=== PATIENT | male | born 1955 | race Caucasian/White ===

== ENCOUNTER → 2019-07-17 | Outpatient (CLI) | payer OTHER ==
--- NOTE | 2019-07-17 08:51 | RAD ---
EXAM: Bilateral lower extremity arterial Doppler. HISTORY: Bilateral lower extremity claudication, smoking history. COMPARISON: None. FINDINGS: Grayscale and Doppler analysis of the lower extremity arterial systems was performed. On the right, there are postobstructive monophasic waveforms throughout. They become more blunted within the trifurcation vessels. The distal posterior tibial and dorsalis pedis arteries remain patent. On the left, there are triphasic waveforms within the common femoral and deep femoral arteries. They become monophasic by the distal superficial femoral artery. The dorsalis pedis and distal posterior tibial arteries are patent. IMPRESSION: 1. Significantly flow-limiting stenosis proximal to the right common femoral artery. There is additional stenosis within the trifurcation vessels. 2. Significantly flow-limiting stenosis in the region of the left proximal/mid superficial femoral artery. Electronically signed by: Boone Hayes MD (07/17/2019 8:49 AM) [facility]
--- NOTE | 2019-07-17 09:15 | RAD ---
CLINICAL HISTORY: CIRRHOSIS COMPARISON: None available. TECHNIQUE: Ultrasound of the upper abdomen was performed. FINDINGS: The liver measures 18.3 cm in length in the right mid clavicular line. Liver is mildly nodular in contour with apparent enlargement of the caudate lobe. Hepatic echotexture is heterogeneous.. There are no focal liver lesions. Flow seen within the portal veins. The gallbladder is normal in appearance without evidence for cholelithiasis. There is no wall thickening or pericholecystic fluid. There is no pain with direct transducer pressure over the gallbladder. The common bile duct measures 0.5 cm. The spleen is not well visualized. The pancreas is mostly obscured by overlying intestinal gas.. The right kidney measures 10.5 cm in bipolar length. The left kidney measures 11.5 cm in bipolar length. No focal renal lesion. Normal renal echotexture. No hydronephrosis. Atherosclerotic calcifications of the aorta. There is no free fluid in the upper abdomen. IMPRESSION: Morphologic changes of the liver which may be seen with hepatic cirrhosis. Electronically signed by: Moe Schaefer MD (07/17/2019 9:12 AM) [facility]
== END | disposition home or self-care (01) ==
LOC: US 07:23
PROVIDERS: ATTEND Family Medicine
DX: I70.203 Unspecified atherosclerosis of native arteries of extremities, bilateral legs (principal); K74.60 Unspecified cirrhosis of liver; I70.0 Atherosclerosis of aorta
CPT/HCPCS: 76700; 93925

== ENCOUNTER → 2019-07-31 | Outpatient (CLI) | payer OTHER ==
[~2019-07-31] MED LIST: CONTRAST GIVEN. MC PRN; IOHEXOL 350 MG/ML 100 ML VIAL. IV ONE
--- NOTE | 2019-08-01 11:31 | RAD ---
EXAM: CT ANGIOGRAPHY OF THE ABDOMEN, PELVIS AND LOWER EXTREMITIES WITH AND WITHOUT CONTRAST. HISTORY: Femoral artery stenosis. TECHNIQUE: Computed tomographic angiography of the abdomen, pelvis and lower extremities was performed before and after the intravenous administration of iodinated contrast. 3-D maximum intensity projections were also performed. COMPARISON: None. FINDINGS: Bone windows reveal mild to moderate chronic superior plate compression fractures at T11 and T12. There are no suspicious lesions. Images of the lung bases reveal pleural calcifications in the left base with associated pleural parenchymal scarring and air trapping. There is some left basilar volume loss. Hepatic surface nodularity indicates cirrhotic change. No focal lesions are identified. The spleen is not enlarged and contains a few calcified granulomas. The gallbladder, pancreas, adrenal glands and kidneys are unremarkable. There are no pathologically enlarged lymph nodes. The appendix is not inflamed. There is no small bowel obstruction. The bladder is decompressed but demonstrates at least moderate wall thickening. The prostate is only mildly enlarged for patient age. There is no abdominal aortic aneurysm. There is moderate to severe diffuse aortoiliac plaquing. Aortic atheromatous narrow the lumen to 7 mm in the infrarenal portion consistent with abdominal aortic stenosis. There is moderate stenosis at the origin of the celiac axis. A chronic short segment dissection flap may be present. There is a separate origin of the left gastric artery directly from the aorta. The superior mesenteric artery is patent at its origin. There is mild stenosis approximately 5 cm distal to its origin. The inferior mesenteric artery is patent. Calcified plaquing along the left renal artery does not result in significant stenosis. The right renal artery is patent. Both common iliac arteries are severely diseased. There is multifocal moderate stenosis bilaterally. There is subtotal occlusion of the right external iliac artery at its origin. A tiny flow lumen persists but may be retrograde. The left external iliac artery is patent. Both internal iliac arteries are severely diseased. The left posterior division is occluded. The right common femoral artery is subtotally occluded. The right superficial femoral artery perfusion appears to be mostly from collateralization through the deep femoral artery. The right superficial femoral artery is diffusely severely diseased with multifocal moderate stenoses. The right popliteal artery occludes in its midportion just proximal to the joint line. The left common iliac artery is severely diseased with only mild luminal narrowing. There is a moderate stenosis at the origin of the left superficial femoral artery. The left superficial femoral artery is diffusely severely diseased with calcified and uncalcified plaquing resulting in multifocal moderate stenosis throughout its proximal portion. It occludes distally. The left popliteal artery reconstitutes immediately thereafter and is diffusely severely diseased with multifocal mild to moderate stenoses. The right trifurcation vessels reconstitute from collaterals proximally. All 3 appear to be patent throughout their course. The dorsalis pedis and common plantar arteries appear patent, though there is likely some perfusion delay of the dorsalis pedis artery. On the left, there is a normal three-vessel trifurcation. The dorsalis pedis and common plantar arteries appear patent. IMPRESSION: 1. Multifocal infrarenal abdominal aortic stenosis with minimal luminal diameter 7 mm. 2. Multifocal bilateral moderate common iliac stenoses. 3. 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 The right superficial femoral artery reconstitutes from internal iliac and deep femoral collaterals and demonstrates multifocal moderate stenosis. The right popliteal artery occludes in its midportion. 4. The left common femoral and superficial femoral arteries are severely diseased with multifocal moderate stenoses. The left superficial femoral artery occludes distally. The popliteal artery reconstitutes and contains multiple mild to moderate stenoses. 5. The right trifurcation vessels reconstitute from collaterals proximally and are patent more distally. Normal left three-vessel trifurcation. 6. Moderate stenosis at the origin of the celiac axis. 7. Morphologic changes of cirrhosis. *One or more of the following individualized dose reduction techniques were utilized for this examination: 1. Automated exposure control. 2. Adjustment of the mA and/or kV according to patient size. 3. Use of iterative reconstruction technique. Electronically signed by: Boone Hayes MD (08/01/2019 11:28 AM) [facility]
== END | disposition home or self-care (01) ==
LOC: CT 08:42
PROVIDERS: ATTEND Surgery
DX: I70.0 Atherosclerosis of aorta (principal); I70.1 Atherosclerosis of renal artery; I70.8 Atherosclerosis of other arteries; J98.4 Other disorders of lung; N40.0 Benign prostatic hyperplasia without lower urinary tract symptoms
CPT/HCPCS: 75635; Q9967

== ENCOUNTER 2019-08-12 08:33 | Outpatient (CLI) | payer OTHER ==
[2019-08-12] VITALS (10 sets, daily range): BP systolic 120–166; BP diastolic 67–84
[~2019-08-12] VITALS: Ht 177.8 cm; Wt 68.0 kg
[2019-08-12 08:56] LABS: BASO # 0.1 x10^3/uL (0.0-0.2); BASO % 2 % (0-3); EOS # 0.5 x10^3/uL (0.0-0.7); EOS % 11 % (0-3); HEMATOCRIT 52.4 % (39.0-53.0); HEMOGLOBIN 17.9 g/dL (13.0-17.5); LYMPH # 1.2 x10^3/uL (1.0-4.8); LYMPH % 29 % (24-48); MEAN CORPUSCULAR HEMOGLOBIN 36 pg (25-35); MEAN CORPUSCULAR HGB CONC 34 g/dL (31-37); MEAN CORPUSCULAR VOLUME 104 fL (79-100); MONO # 0.4 x10^3/uL (0.0-1.1); MONO % 10 % (0-9); NEUT # 2.1 x10^3/uL (1.8-7.7); NEUT % 49 % (31-73); PLATELET COUNT 184 x10^3/uL (140-400); RED BLOOD COUNT 5.04 x10^6/uL (4.30-5.70); RED CELL DISTRIBUTION WIDTH 13.4 % (11.5-14.5); WHITE BLOOD COUNT 4.3 x10^3/uL (4.0-11.0)
[2019-08-12 09:04] LABS: CALCIUM 8.8 mg/dL (8.5-10.1); CREATININE 0.9 mg/dL (0.7-1.3); GFR 85.5; POTASSIUM 3.7 mmol/L (3.5-5.1)
[2019-08-12 09:07] LABS: PROTHROMBIN TIME PATIENT 14.2 SEC (11.7-14.0)
[2019-08-12] MEDS ORDERED: LIDOCAINE WITH 8.4% SOD BICARB 3 ML DISP.SYRIN. ONE (09:50)
[2019-08-12] MEDS ORDERED: HEPARIN for ARTERIAL LINE 1,500 ML ONE (09:50)
[2019-08-12] MEDS ORDERED: IODIXANOL 320 MG/ML 100 ML VIAL. ONE (09:50)
[2019-08-12] MEDS ORDERED: MIDAZOLAM HCL/PF 2 MG/2 ML VIAL. ONE (09:56)
[2019-08-12] MEDS ORDERED: fentaNYL PF VIAL 100 MCG/2 ML VIAL ONE (09:57)
[2019-08-12] MEDS ORDERED: diphenhydrAMINE 50 MG/ML VIAL IVP ONE (10:00)
[2019-08-12 10:03] LABS: % EOS 10 % (0-5); % LYMPHS 28 % (24-48); % MONOS 13 % (0-10); % SEGS 49 % (35-66); PLT ESTIMATE ADEQUATE (ADEQUATE)
[2019-08-12] MEDS ORDERED: HEPARIN for IV BOLUS 10,000 UNIT/10 ML VIAL. ONE (10:10)
--- NOTE | 2019-08-12 10:10 | NUR ---
NEW ORDER RECEIVED FROM DR. STAFFORD, TO GIVE BENADRYL 50MG IV X1 FOR ITCHING ON PATIENT'S LEGS. ADMINISTERED DOSE VIA RIGHT FOREARM PIV, NO COMPLICATIONS.
[2019-08-12] MEDS ORDERED: CONTRAST GIVEN. MC PRN (10:15)
[2019-08-12] MEDS ORDERED: LIDOCAINE WITH 8.4% SOD BICARB 3 ML DISP.SYRIN. IJ ONE (10:15)
[2019-08-12] MEDS ORDERED: fentaNYL PF VIAL 100 MCG/2 ML VIAL IV ONE (10:15)
[2019-08-12] MEDS ORDERED: MIDAZOLAM HCL/PF 2 MG/2 ML VIAL. IV ONE (10:15)
[2019-08-12] MEDS ORDERED: IODIXANOL 320 MG/ML 100 ML VIAL. IART ONE (10:15)
--- NOTE | 2019-08-12 11:55 | PDOC ---
MODERATE SEDATION ASSESSMENT RISKS/ALTERNATIVES Risks/Alternatives Risks and alternatives of this type of sedation and procedure discussed with: RISK/ALTERNATIVES: Patient H & P ON CHART H & P H & P on chart and reviewed for co-morbid conditions and appropriate labs. H&P ON CHART: Yes STATUS PREG STATUS ASSESSED: Yes MEDS/ALLERGIES REVIEWED Meds/Allergies Reviewed Medications and Allergies including time and route of recently administered narcotics and sedatives. MEDS/ALLERGIES REVIEWED: Yes ASA RATING ASA RATING: III AIRWAY ASSESSMENT Airway Assessment Airway patency, oral function limitations, presence of caps, crowns, dentures, partials, and ability to extend neck assessed. AIRWAY ASSESSMENT: Yes MALLAMPATI SCORE MALLAMPATI SCORE: II PRE-SEDATION ASSESSMENT PRE-SEDATION ASSESSMENT: Yes BLAYNE STAFFORD MD Aug 12, 2019 11:55
--- NOTE | 2019-08-12 11:59 | PDOC ---
Exam Concert Manager Concert Manager Wes Lead Etl Developer Lead Etl Developer Susan Aguilar Pre-Procedure Diagnosis Pre-Procedure Diagnosis Claudication Post-Procedure Diagnosis Post-Procedure Diagnosis Multifocal critical stenoses and occlusions involving major arteries RLE. See report for more detail. Procedure Performed Procedure Performed RLE angio Type of Anesthesia Type of Anesthesia Mod Sedation Estimated Blood Loss EBL: 5 Specimens Specimans none Drain/Tubes Drains/Tubes none Condition of Patient Condition of Patient Stable Disposition Disposition DC home FU vascular surgery consultation BLAYNE STAFFORD MD Aug 12, 2019 11:59
--- NOTE | 2019-08-12 14:50 | NUR ---
Pt A&O x3. denies pain. tolerating po well. VSS. ambulated to BR w/o problem. left groin site is clean and dry. no bleeding or swelling. d/c instructions given. questions answered. info regarding consult to Dr. Lo given. out to vehicle per w/c, pt's sister to drive him home.
--- NOTE | 2019-08-13 08:46 | RAD ---
08/13/2019 6:35 AM Procedure: 1. Pelvic angiography 2. Right lower extremity angiography Clinical Indication: STENOSIS Discussion: The procedure was explained in its entirety to the patient or the patients designated instruments sales representative by a member of the treatment team, including a discussion of the risks, benefits and commonly accepted alternatives to the procedure, as well as the expected consequences of no therapy whatsoever. Discussion of the risks included, but was not limited to, those that are most frequent and those that are rare but possibly severe or life-threatening, as well as the possibility of unforeseen complications. All elements of maximal sterile barrier technique including the use of a cap, mask, sterile gown, sterile gloves, large sterile sheet, appropriate hand hygiene, and 2% chlorhexidine for cutaneous antisepsis (or acceptable alternative antiseptic per current guidelines) were followed for this procedure. Left groin is prepped and draped using sterile barrier technique as described above. Ultrasound evaluation demonstrates calcified but patent left common femoral artery. The artery was accessed using micropuncture technique under direct ultrasound guidance. Reference ultrasound images were saved the medical record. Angiograms to the access sheath were obtained demonstrating left common femoral access site. Flush catheter was advanced into the inferior bowel aorta. Pelvic angiography was performed. There is 50% narrowing of the right common iliac artery. There is High-grade long segment stenosis throughout the entirety of the right external iliac artery. There is long segment high-grade stenosis of the right common femoral artery with distal short segment chronic total occlusion of the right common femoral artery, which is densely calcified.. There is 20% narrowing of the proximal left common iliac artery. The left internal iliac artery is patent. The right internal iliac artery is patent. Multiple robust collaterals via the right internal iliac artery supply the profunda artery and results in reconstitution of the superficial femoral artery. There is approximately 80% stenosis of the distal superficial femoral artery which is densely calcified. There is an chronic total occlusion of the [id number] popliteal artery. There is reconstitution of the posterior tibial, anterior tibial, and peroneal arteries via the [id number] geniculate collaterals. Following angiography, the case was discussed with the on-call vascular surgeon. Given the density calcified chronic total occlusion of the common femoral artery on the right, and endarterectomy with retrograde stent placement was felt to be intervention offering the patient the most benefit. Therefore all catheters and sheaths were removed. A closure device was deployed to achieve hemostasis the left common femoral puncture site. Sterile dressings were applied. No immediate complications were identified. Total fluoroscopy time: 4.2 min Dose area product: 137 Gycm2 The procedures performed under conscious sedation including continuous cardiopulmonary monitoring via dedicated sedation nurse. [id number] sedation time: 60 minutes Impression: 1. 50% stenosis, right common iliac artery 2. Long segment high-grade stenosis of the right external iliac artery 3. Long segment stenosis, and focal heavily calcified chronic total occlusion of the right common femoral artery 4. 80% stenosis distal right superficial femoral artery. 5. Chronic total occlusion [id number] popliteal artery 6. Reconstitution of all 3 tibial vessels below the knee 7. Patient will be referred to vascular surgery for likely right common femoral endarterectomy, and possible retrograde placement of common and external iliac stents
== END 2019-08-12 14:50 | disposition home or self-care (01) ==
LOC: INTRAD 08:33
PROVIDERS: ATTEND Surgery
DX: I70.201 Unspecified atherosclerosis of native arteries of extremities, right leg (principal)
CPT/HCPCS: 36200; 36415; 75716; 76937; 80048; 85025; 85610; 99152; 99153; C1760; C1769; C1892; C1894; J1200; J1644; J2250; J3010; Q9967; 36245; 75625; 75710; 85007; G0269